=== PATIENT | male | born 1975 | race Hispanic/Latino ===

== ENCOUNTER 2022-11-23 10:33 | Emergency (ER) | payer OTHER ==
[~2022-11-23] VITALS: Ht 170.2 cm; Wt 69.4 kg
[2022-11-23 10:36] VITALS: BP 116/78
[2022-11-23] MEDS ORDERED: ACET-2079 PO (11:17)
[2022-11-23] MEDS ORDERED: HYDROMORPHONE 1 MG INJ IM ONE (11:30)
== END 2022-11-23 12:34 | disposition home or self-care (01) ==
LOC: EDH 10:33
DX: G89.29 Other chronic pain (principal); K94.23 Gastrostomy malfunction; D10.30 Benign neoplasm of unspecified part of mouth; R51.9 Headache, unspecified; Z98.890 Other specified postprocedural states
CPT/HCPCS: 99283; 96372; J1170 ×2

== ENCOUNTER 2022-12-05 09:31 | Observation (INO) | payer OTHER ==
[~2022-12-05] VITALS: Ht 162.6 cm; Wt 69.6 kg
[~2022-12-05 09:31] MED LIST: ACET-2079 PO
[2022-12-05] MEDS ORDERED: PANTOPRAZOLE 40 MG/VIAL IVP ONE (11:00)
[2022-12-05] MEDS ORDERED: MORPHINE 2 MG SYG IVP ONE (11:00)
[2022-12-05] MEDS ORDERED: METOCLOPRAMIDE 10 MG/2 ML VIAL IVP ONE (11:00)
[2022-12-05] MEDS ORDERED: LACTATED RINGERS 1000ML 1,000 ML IV ONE (11:00)
[2022-12-05 11:30] LABS: APPEARANCE,URINE CLEAR (CLEAR); BILIRUBIN,URINE NEGATIVE (NEGATIVE); COLOR,URINE COLORLESS (YELLOW); GLUCOSE, URINE (UA) NEGATIVE (NEGATIVE); KETONES,URINE NEGATIVE (NEGATIVE); LEUKOCYTE ESTERASE ,URINE NEGATIVE Leu/uL (NEGATIVE); NITRATE,URINE NEGATIVE (NEGATIVE); OCCULT BLOOD,URINE NEGATIVE (NEGATIVE); PROTEIN,URINE NEGATIVE (NEGATIVE); UROBILINOGEN,URINE 0.2 mg/dL (0.2-1.0)
[2022-12-05 12:10] LABS: BASOPHILS % (AUTO) 0.3 % (0.0-5.0); EOSINOPHILS % (AUTO) 7.5 % (0.0-8.0); HEMATOCRIT 27.6 % (42-54); LYMPHOCYTES % (AUTO) 9.5 % (21.0-51.0); MEAN CORPUSCULAR HGB CONC 32.2 g/dL (32.0-36.0); MEAN CORPUSCULAR VOLUME 86.8 fL (79-99); MONOCYTES % (AUTO) 7.3 % (3.0-13.0); NEUTROPHILS % (AUTO) 75.1 % (40.0-77.0); PLATELET COUNT (AUTO) 170 K/uL (130-400); RED BLOOD CELL COUNT(AUTO) 3.18 MIL/uL (4.50-6.20); WHITE BLOOD COUNT (AUTO) 5.9 K/uL (4.8-10.8)
[2022-12-05 12:19] LABS: POTASSIUM 4.5 mmol/L (3.5-5.1)
[2022-12-05 12:23] LABS: ALBUMIN 2.7 g/dL (3.5-5.0)
[2022-12-05] MEDS ORDERED: ONDANSETRON 4MG INJ IVP PRN (13:00)
[2022-12-05] MEDS: 0.9%NACL 1000ML 1,000 ML IV SCH (13:21)
[2022-12-05] MEDS ORDERED: IOHEXOL-350 75 ML VIAL IV ONE (13:40)
[2022-12-05] MEDS ORDERED: IOHEXOL-350 50ML VIAL IV ONE (13:41)
[2022-12-05 16:00] VITALS: BP 115/66; PULSE 60; RESP 18
[2022-12-05 19:00] VITALS: BP 116/68; PULSE 62; RESP 17
[2022-12-05] MEDS ORDERED: KETOROLAC 30MG VIAL (30MG/ML) IVP ONE (19:30)
[2022-12-05 23:00] VITALS: BP 105/65; PULSE 68; RESP 17
[2022-12-06] VITALS (24 sets, daily range): BP systolic 78–117; BP diastolic 47–78; PULSE 61–85; RESP 15–20
[2022-12-06] MEDS: MORPHINE 4 MG SYG IVP PRN ×3 (02:08→15:38)
[2022-12-06 07:37] LABS: INR 0.96 (0.85-1.15); PROTHROMBIN TIME 11.2 SEC (9.6-11.6)
[2022-12-06 07:38] LABS: PARTIAL THROMBOPLASTIN TIME 28.9 SEC (26.3-35.5)
[2022-12-06] MEDS ORDERED: PROPOFOL 10 MG/ML 20ML VIAL IV ONE ×2 (07:48)
[2022-12-06] MEDS ORDERED: LIDOCAINE PF 100MG/5ML (2%) SYRINGE 5ML ONE (07:49)
[2022-12-06] MEDS ORDERED: PANTOPRAZOLE 40 MG/VIAL IVP SCH (09:00)
[2022-12-06] MEDS: 0.9%NACL 1000ML 1,000 ML IV SCH (09:39)
== END 2022-12-06 20:08 | disposition short-term general hospital (02) ==
LOC: EDH 09:31 → EDHIP 09:32 → 4CH 15:05
PROVIDERS: ADMIT Internal Medicine Hematology & Oncology; ATTEND Internal Medicine Hematology & Oncology
DX: C01 Malignant neoplasm of base of tongue (principal); Z20.822 Contact with and (suspected) exposure to COVID-19; R63.4 Abnormal weight loss; R13.10 Dysphagia, unspecified; K92.2 Gastrointestinal hemorrhage, unspecified; K92.0 Hematemesis; C06.9 Malignant neoplasm of mouth, unspecified; K22.9 Disease of esophagus, unspecified; Z85.819 Personal history of malignant neoplasm of unspecified site of lip, oral cavity, and pharynx; Z93.1 Gastrostomy status; Z68.26 Body mass index [BMI] 26.0-26.9, adult; Z79.899 Other long term (current) drug therapy; Z98.890 Other specified postprocedural states
CPT/HCPCS: 96374; 96361; 96375; 99285; 80053; 83690; 85025; 81003; 36415 ×2; 71270; 70491; 74178; 96376; 85610; 85730; 87635; 43235; G0378 ×29; J7120; J2270 ×4; J1885; C9113 ×2; J2765; Q9967 ×2; J2001; J2704 ×2; A4620; A4215; A4223; A4657 ×2; A7002; A4222; A4216; J7030; A4606